=== PATIENT | female | born 1995 | race Two or more races ===

== ENCOUNTER 2016-04-10 01:45 | Emergency (ER) | payer MEDICAID, OTHER ==
[2016-04-10] MEDS ORDERED: SODIUM CHLORIDE 0.9% 1,000 ML IV ONE (07:27)
[2016-04-10] MEDS ORDERED: PROMETHAZINE HCL 25 MG/ML 1ML IV ONE (07:30)
[2016-04-10] MEDS ORDERED: KETOROLAC TROMETH 30 MG/ML 1ML VIAL IV ONE (07:30)
[2016-04-10 10:35] VITALS: BP 129/56
== END 2016-04-10 10:58 | disposition home or self-care (01) ==
LOC: EDAGE 01:45 → ER 01:52
DX: S30.0XXA Contusion of lower back and pelvis, initial encounter (principal); M62.838 Other muscle spasm; M48.03 Spinal stenosis, cervicothoracic region; Z88.0 Allergy status to penicillin; V49.49XA Driver injured in collision with other motor vehicles in traffic accident, initial encounter; Y93.89 Activity, other specified; Y99.8 Other external cause status; Y92.410 Unspecified street and highway as the place of occurrence of the external cause
CPT/HCPCS: 72125; 72128; 72131; 81025; 96361; 96374; 96375; 99284; J1885; J2550